=== PATIENT | female | born 2000 | race Caucasian/White ===

== ENCOUNTER 2018-05-08 15:04 | Emergency (ER) | payer SELFPAY ==
[2018-05-08 15:22] VITALS: BP 122/75
--- NOTE | 2018-05-08 15:46 | EDM.PDOC ---
ED HPI GENERAL MEDICAL PROBLEM - General Chief Complaint: Back Pain or Injury Stated Complaint: LOWER BACK PAIN Time Seen by Provider: 05/08/18 15:13 Source of Information: Reports: Patient History Limitations: Reports: No Limitations - History of Present Illness INITIAL COMMENTS - FREE TEXT/NARRATIVE: History of present illness: []Patient in 4 days of dysuria but today became dizzy so she came in for evaluation. She had an appointment scheduled with her doctor at the end of the week but did not want to wait. She's had no fevers, chills, vomiting but she is nauseated. She denies any abdominal pain but has mild left flank pain. As per history of present illness and below otherwise all systems reviewed and negative. Past medical history: As per history of present illness and as reviewed below otherwise noncontributory. Surgical history: As per history of present illness and as reviewed below otherwise noncontributory. Social history: No reported history of drug or alcohol abuse. Family history: As per history of present illness and as reviewed below otherwise noncontributory. Physical exam: General: Well developed, well nourished in NAD HEENT: Atraumatic, normocephalic, pupils reactive, negative for conjunctival pallor or scleral icterus, mucous membranes moist, throat clear, neck supple, nontender, trachea midline. Lungs: Clear to auscultation, breath sounds equal bilaterally, chest nontender. Heart: S1S2, regular, negative for clicks, rubs, or JVD. Abdomen: Soft, nondistended, nontender. Negative for masses or hepatosplenomegaly. Negative for costovertebral tenderness. Pelvis: Stable nontender. Genitourinary: Deferred. Rectal: Deferred. Extremities: Atraumatic, negative for cords or calf pain. Neurovascular unremarkable. Neuro: Awake, alert, oriented. Cranial nerves II through XII unremarkable. Cerebellum unremarkable. Motor and sensory unremarkable throughout. Exam nonfocal. Diagnostics: []UA shows positive nitrites and leuk esterase with 10-15 WBCs no RBCs, pregnancies negative Therapeutics: [] Impression: []UTI Plan: []Nitrofurantoin increase fluids follow-up with primary care Definitive disposition and diagnosis as appropriate pending reevaluation and review of above. lower back Pain Score (Numeric/FACES): 5 - Related Data Allergies Allergy/AdvReac Type Severity Reaction Status Date / Time No Known Allergies Allergy Verified 05/08/18 15:20 Home Meds: Home Meds Nitrofurantoin Macrocrystal [Macrodantin] 100 mg PO BID #14 capsule 05/08/18 [Rx ] Past Medical History HEENT History: Reports: None Cardiovascular History: Reports: None Respiratory History: Reports: Other (See Below) Other Respiratory History: pneumonia Gastrointestinal History: Reports: Other (See Below) Genitourinary History: Reports: UTI, Recurrent, Other (See Below) Other Genitourinary History: hx of kidney infections 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 Musculoskeletal History: Reports: None Neurological History: Reports: None Psychiatric History: Reports: None Endocrine/Metabolic History: Reports: None Hematologic History: Reports: None Immunologic History: Reports: None Oncologic (Cancer) History: Reports: None Dermatologic History: Reports: None - Infectious Disease History Infectious Disease History: Reports: None - Past Surgical History Head Surgeries/Procedures: Reports: None HEENT Surgical History: Reports: Adenoidectomy, Tonsillectomy Cardiovascular Surgical History: Reports: None Respiratory Surgical History: Reports: None GI Surgical History: Reports: Appendectomy Female Surgical History: Reports: None Oncologic Surgical History: Reports: None Social & Family History - Family History Family Medical History: Noncontributory Cardiac: Reports: Hypertension Endocrine/Metabolic: Reports: Diabetes, type II - Tobacco Use Smoking Status *Q: Never Smoker Second Hand Smoke Exposure: No - Caffeine Use Caffeine Use: Reports: Energy Drinks - Recreational Drug Use Recreational Drug Use: No ED ROS GENERAL - Review of Systems Review Of Systems: See Below (See history of present illness) ED EXAM, RENAL/ - Physical Exam Exam: See Below (See history of present illness) Course - Vital Signs Last Recorded V/S: Last Vital Signs Temp 97.6 F 05/08/18 15:20 Pulse 105 H 05/08/18 15:20 Resp 18 05/08/18 15:20 BP 122/75 05/08/18 15:20 Pulse Ox 98 05/08/18 15:20 - Orders/Labs/Meds Orders: Active Orders 24 hr Category Date Time Status CULTURE URINE [RM] Stat Lab 05/08/18 15:18 Received HCG QUALITATIVE,URINE [URCHEM] Stat Lab 05/08/18 15:18 Ordered UA W/MICROSCOPIC [URIN] Stat Lab 05/08/18 15:18 Ordered Labs: Laboratory Tests 05/08/18 05/08/18 Range/Units 15:18 15:18 Urine Color ORANGE Urine Appearance SLT CLOUDY Urine pH 6.0 (5.0-8.0) Ur Specific [place] <= 1.005 (1.001-1.035) Urine Protein 100 (NEGATIVE) mg/dL Urine Glucose (UA) NEGATIVE (NEGATIVE) mg/dL Urine Ketones NEGATIVE (NEGATIVE) mg/dL Urine Occult Blood MODERATE (NEGATIVE) Urine Nitrite POSITIVE H (NEGATIVE) Urine Bilirubin NEGATIVE (NEGATIVE) Urine Urobilinogen 1.0 (<2.0) EU/dL Ur Leukocyte Esterase MODERATE (NEGATIVE) Urine RBC 0-2 (0-2/HPF) Urine WBC 10-15 (0-5/HPF) Ur Epithelial Cells FEW (NONE-FEW) Urine Bacteria FEW (NEGATIVE) Urine HCG, Qual NEGATIVE (NEGATIVE) Departure - Departure Time of Disposition: 15:46 Disposition: Home, Self-Care 01 Condition: Good Clinical Impression: UTI (urinary tract infection) Qualifiers: Urinary tract infection type: site unspecified Hematuria presence: without hematuria Qualified Code(s): N39.0 - Urinary tract infection, site not specified - Discharge Information Prescriptions: Nitrofurantoin Macrocrystal [Macrodantin] 100 mg PO BID #14 capsule Referrals: PCP,None [Primary Care Provider] - Additional Instructions: The following information is given to patients seen in the emergency department who are being discharged to home. This information is to outline your options for follow-up care. We provide all patients seen in our emergency department with a follow-up referral. The need for follow-up, as well as the timing and circumstances, are variable depending upon the specifics of your emergency department visit. If you don't have a primary care physician on staff, we will provide you with a referral. We always advise you to contact your personal physician following an emergency department visit to inform them of the circumstance of the visit and for follow-up with them and/or the need for any referrals to a consulting specialist. The emergency department will also refer you to a specialist when appropriate. This referral assures that you have the opportunity for follow-up care with a specialist. All of these measure are taken in an effort to provide you with optimal care, which includes your follow-up. Under all circumstances we always encourage you to contact your private physician who remains a resource for coordinating your care. When calling for follow-up care, please make the office aware that this follow-up is from your recent emergency room visit. If for any reason you are refused follow-up, please contact the [facility] Emergency Department at and asked to speak to the emergency department charge nurse. [facility] [address] [place] [id number] - My Orders Last 24 Hours: My Active Orders 05/08/18 15:18 CULTURE URINE [RM] Stat HCG QUALITATIVE,URINE [URCHEM] Stat UA W/MICROSCOPIC [URIN] Stat - Assessment/Plan Last 24 Hours: My Active Orders 05/08/18 15:18 CULTURE URINE [RM] Stat HCG QUALITATIVE,URINE [URCHEM] Stat UA W/MICROSCOPIC [URIN] Stat
== END 2018-05-08 16:00 | disposition home or self-care (01) ==
LOC: MW.ED 15:04
DX: N39.0 Urinary tract infection, site not specified (principal)
CPT/HCPCS: 81001; 81025; 87086; 99283

== ENCOUNTER 2021-05-23 19:01 | Emergency (ER) | payer MEDICAID ==
[2021-05-23 19:24] VITALS: BP 129/73; PULSE 89
[2021-05-23] MEDS ORDERED: Acetaminophen/oxyCODONE 325-5 MG Tab PO ONE (19:29)
--- NOTE | 2021-05-23 19:35 | EDM.PDOC ---
ED HPI GENERAL MEDICAL PROBLEM - General Chief Complaint: Upper Extremity Injury/Pain Stated Complaint: RT HAND INJURY Time Seen by Provider: 05/23/21 19:12 Source of Information: Reports: Patient History Limitations: Reports: No Limitations - History of Present Illness INITIAL COMMENTS - FREE TEXT/NARRATIVE: 21-year-old female presents with right hand injury. She fell on the hitch of a truck on Monday, her right hand metacarpals was pinched between her body and the hitch upon the fall. She admits to severe pain to the right hand metacarpals, radiating to the right wrist, exacerbated with palpation and range of motion, no alleviating factors, sharp, constant. ROS: A 10-point review of systems, other than pertinent positives and negatives as stated per HPI, is otherwise negative Past medical history: No additional pertinent history Past Surgical history: No additional pertinent history Social history: No additional pertinent history Family history: No additional pertinent history PHYSICAL EXAM General: AOx4, GCS = 15, moderate distress HEENT: dry mucous membrane Neck: supple, no meningismus, no Kernig or Brudzinski Cardiac: S1S2 RRR Respiratory: CTAB, no crackles or rales, no wheezing Abdomen: Soft, nontender, no rebound or guarding, nondistended, no pulsatile mass. Back: nontender Musculoskeletal: NVI distally, right hand metacarpals diffusely swollen and tender with no deformity. Right wrist tender to palpation. No tenderness to right elbow. Right forearm compartments are soft. Neuro: No focal deficits, CN 2 - 12 WNL. right hand Pain Score (Numeric/FACES): 7 - Related Data Allergies Allergy/AdvReac Type Severity Reaction Status Date / Time No Known Allergies Allergy Verified 05/23/21 19:22 Home Meds: Home Meds Control 08/20/18 [History] Erythromycin Base [Erythromycin 0.5% Ophth Oint] 1 applic OP Q12H #1 tube 08/20/18 [Rx] Acetaminophen/oxyCODONE [Percocet 325-5 MG] 1 each PO Q6H PRN #12 tab 05/23/21 [Rx] Past Medical History HEENT History: Reports: None Cardiovascular History: Reports: None Respiratory History: Reports: Other (See Below) Other Respiratory History: pneumonia Gastrointestinal History: Reports: Other (See Below) Genitourinary History: Reports: UTI, Recurrent, Other (See Below) Other Genitourinary History: hx of kidney infections [employer]TER [employer]ER History: Reports: None Musculoskeletal History: Reports: None Neurological History: Reports: None Psychiatric History: Reports: None Endocrine/Metabolic History: Reports: None Hematologic History: Reports: None Immunologic History: Reports: None Oncologic (Cancer) History: Reports: None Dermatologic History: Reports: None - Infectious Disease History Infectious Disease History: Reports: None - Past Surgical History Head Surgeries/Procedures: Reports: None HEENT Surgical History: Reports: Adenoidectomy, Tonsillectomy Cardiovascular Surgical History: Reports: None Respiratory Surgical History: Reports: None GI Surgical History: Reports: Appendectomy Female Surgical History: Reports: None Oncologic Surgical History: Reports: None Social & Family History - Family History Family Medical History: No Pertinent Family History Cardiac: Reports: Hypertension Endocrine/Metabolic: Reports: Diabetes, type II - Caffeine Use Caffeine Use: Reports: Coffee, Energy Drinks, Soda, Tea Review of Systems - Review of Systems Review Of Systems: See Below (see dictation) ED EXAM, GENERAL - Physical Exam Exam: See Below (see dictation) ED TRAUMA EXTREMITY PROCEDURES - Splinting Right Upper Extremity Splint Site: Right hand Pre-Procedure NV Status: Normal Post-Procedure NV Status: Normal Splint Material: Fiberglass Splint Design: Volar Applied & Form Fitted By: Nurse Provider Post-Splint Application NV Check: NV Status Normal, Good Position Complications: No Course - Vital Signs Last Recorded V/S: Last Vital Signs Temp 98.1 F 05/23/21 19:23 Pulse 89 05/23/21 19:23 Resp 18 05/23/21 19:23 BP 129/73 05/23/21 19:23 Pulse Ox 96 05/23/21 19:23 - Orders/Labs/Meds Orders: Active Orders 24 hr Category Date Time Status Hand Comp Min 3V Rt [CR] Stat Exams 05/23/21 19:29 Ordered Wrist Comp Min 3V Rt [CR] Stat Exams 05/23/21 19:29 Ordered DME for Discharge [COMM] Stat Oth 05/23/21 19:47 Ordered Meds: Medications Discontinued Medications Generic Name Dose Route Start Last Admin Trade Name Jerry PRN Reason Stop Dose Admin Oxycodone/Acetaminophen 1 tab 05/23/21 19:29 Acetaminophen/Oxycodone 325-5 Mg Tab PO 05/23/21 19:30 ONETIME ONE - Re-Assessments/Exams Free Text/Narrative Re-Assessment/Exam: 05/23/21 19:32 After splint and sling in the ER, the patient improved and is currently stable for discharge. I performed a repeat exam and did not appreciate new abnormal findings. Patient exhibits normal vital signs and has a normal gait on road test. I advised the patient to return to the ER for reevaluation if symptoms worsened, including fever, worsening pain, or any other worrisome symptoms. I instructed the patient to follow up with orthopedic hand Dr. Maier at [facility] within 2-3 days. MEDICAL DECISION MAKING: I reviewed the patients past medical records, lab and radiographic findings. I discussed the case with the patient. My differential diagnosis included: Fracture, dislocation, contusion, compartment syndrome. X- ray demonstrates metacarpal fractures to the fourth and fifth metacarpal with appropriate angulation for splinting and outpatient follow-up. Patient was placed in ulnar gutter splint and sling, and was subsequently intact neurovascularly. The affected right hand demonstrated good distal perfusion, warm, pink, cap refill <2 seconds, compartments soft, pulses equal in both extremities. Patient understands to return immediately for worsening pain, swelling, fever, numbness/tingling or other concerns and to f/u with orthopedic hand Dr. Maier at [facility] within 2-3 days. Departure - Departure Time of Disposition: 19:56 Disposition: Home, Self-Care 01 Condition: Good Clinical Impression: Fracture of metacarpal of right hand, closed, Fracture of metacarpal bone - Discharge Information *PRESCRIPTION DRUG MONITORING PROGRAM REVIEWED*: Not Applicable *COPY OF PRESCRIPTION DRUG MONITORING REPORT IN PATIENT LANE: Not Applicable Prescriptions: Acetaminophen/oxyCODONE [Percocet 325-5 MG] 1 each PO Q6H PRN #12 tab PRN Reason: Pain (Moderate 4-6) Instructions: Cast or Splint Care, Adult, [id number], Metacarpal Fracture, How To Use a Sling, [id number], Crush Injury of the Hand, [id number] Referrals: Cheikh Maier [Ordering Only Provider] - 3 Days Carlin Loredo MD [Ordering Only Provider] - 3 Days Forms: ED Department Discharge Additional Instructions: The need for follow-up, as well as the timing and circumstances, are variable depending upon the specifics of your emergency department visit. If you don't have a primary care physician on staff, we will provide you with a referral. We always advise you to contact your personal physician following an emergency department visit to inform them of the circumstance of the visit and for follow-up with them and/or the need for any referrals to a consulting specialist. The emergency department will also refer you to a specialist when appropriate. This referral assures that you have the opportunity for follow-up care with a specialist. All of these measure are taken in an effort to provide you with optimal care, which includes your follow-up. Under all circumstances we always encourage you to contact your private physician who remains a resource for coordinating your care. When calling for fo llow-up care, please make the office aware that this follow-up is from your recent emergency room visit. If for any reason you are refused follow-up, please contact the [facility] Emergency Department at and asked to speak to the emergency department charge nurse. Please follow-up with your to orthopedic hand surgeons within 2 to 3 days. If you do not have a primary care doctor, please follow up with the clinics below within 3-5 days. [facility] [address] [place] [address] [id number] [address] Sepsis Event Note (ED) - Evaluation Sepsis Screening Result: No Definite Risk - Focused Exam Vital Signs: Vital Signs Temp Pulse Resp BP Pulse Ox 05/23/21 19:23 98.1 F 89 18 129/73 96 - My Orders Last 24 Hours: My Active Orders 05/23/21 19:29 Hand Comp Min 3V Rt [CR] Stat Wrist Comp Min 3V Rt [CR] Stat 05/23/21 19:47 DME for Discharge [COMM] Stat - Assessment/Plan Last 24 Hours: My Active Orders 05/23/21 19:29 Hand Comp Min 3V Rt [CR] Stat Wrist Comp Min 3V Rt [CR] Stat 05/23/21 19:47 DME for Discharge [COMM] Stat
--- NOTE | 2021-05-23 20:08 | CR ---
Indication: Fall, pain Technique: Three views right hand Comparison: None Findings: Displaced fractures involving the mid diaphyses of the 4th and 5th metacarpals. Volar angulation of the distal 5th metacarpal fracture fragment is present. No articular involvement. Overlying soft tissue swelling dorsally. Impression: Fractures of the 4th and 5th metacarpals. Dictated by Dequan Ng MD @ 05/23/2021 8:05:[address] Dequan Ng @ May 23 2021 8:05PM
--- NOTE | 2021-05-23 20:08 | CR ---
Indication: Fall, pain Technique: Three views right wrist Comparison: None Findings: Fractures of the 4th and 5th metacarpal diaphyses. Intact carpal bones. No carpal malalignment or arthrosis. Impression: No carpal fracture. Fractures of the 4th and 5th metacarpals. Dictated by Dequan Ng MD @ 05/23/2021 8:06:[address] Dequan Ng @ May 23 2021 8:06PM
== END 2021-05-23 20:57 | disposition home or self-care (01) ==
LOC: MW.ED 19:01
DX: S62.394A Other fracture of fourth metacarpal bone, right hand, initial encounter for closed fracture (principal); S62.396A Other fracture of fifth metacarpal bone, right hand, initial encounter for closed fracture; W18.09XA Striking against other object with subsequent fall, initial encounter
CPT/HCPCS: 29125; 73110; 73130; 99283; A9270

== ENCOUNTER 2022-01-01 11:06 | Emergency (ER) | payer MEDICAID ==
[2022-01-01] MEDS ORDERED: Sodium Chloride 0.9% 1,000 ML IV ONE (13:17)
[2022-01-01] MEDS ORDERED: Ketorolac 30 MG/ML SDV IVPUSH ONE (13:26)
[2022-01-01] MEDS ORDERED: Ondansetron 4 MG/2 ML SDV IVPUSH ONE (13:26)
[2022-01-01 13:58] LABS: BLOOD UREA NITROGEN,BUN 6 mg/dL (7.0-18.0); CARBON DIOXIDE,CO2 21.5 mmol/L (21.0-32.0); CHLORIDE,CL 99 mmol/L (98-107); GLUCOSE RANDOM 90 mg/dL (74-106); POTASSIUM,K 3.5 mmol/L (3.5-5.1); SODIUM,NA 134 mmol/L (136-145)
[2022-01-01] MEDS ORDERED: Ciprofloxacin in D5W 400 MG in Premix Bag 1 BAG IV SCH ×2 (14:00)
[2022-01-01 14:26] LABS: CORONAVIRUS COVID-19 NAA NEGATIVE (NEGATIVE); INFLUENZA A NAA POSITIVE (NEGATIVE); INFLUENZA B NAA NEGATIVE (NEGATIVE); RESPIRATORY SYNCYTIAL VIR NAA NEGATIVE (NEGATIVE)
[2022-01-01 15:00] VITALS: BP 112/59; PULSE 90
== END 2022-01-01 15:01 | disposition home or self-care (01) ==
LOC: MW.ED 11:06
DX: J10.1 Influenza due to other identified influenza virus with other respiratory manifestations (principal); Z20.822 Contact with and (suspected) exposure to COVID-19
CPT/HCPCS: 0241U; 36415; 80053; 81001; 81025; 83605; 85025; 87040; 96374; 96375; 99284; J1885; J2405; J7030; 99283